=== PATIENT | female | born 1945 | race Caucasian/White ===

== ENCOUNTER → 2016-07-30 | Outpatient (CLI) | payer OTHER ==
[~2016-07-30] MED LIST: ACETAMINOPHEN500 M2 PO; ALLEGRA ALLERG180 MG PO; ALLEGRA180 MG PO; ALLERGIE SHOTS; AMLODIPINE BESYL5 MG PO; CRESTOR10 MG PO; FLUOXETINE HCL20 M1 PO; HAIR, SKIN & N1 EAC1 PO; HYDROCHLOROTH12.5 M1 PO; HYDROCODON-ACE1 EAC9 PO; KRILL OIL 1,001 EAC1 PO; LATANOPROST2.5 ML OU; MULTI VITAMIN1 EACH PO; PHENERGAN25 MG PO; PRILOSEC20 MG PO; PROBIOTIC1 EAC1 PO; SIMVASTATIN40 MG PO; TIMOPTIC5 ML OU
--- NOTE | ~2016-07-30 | CR63 ---
[facility] A Service of [facility] & [facility] RADIOLOGY TEXT RESULTS PATIENT: NEMO DAMON LOCATION: [facility] : 47 UNIT #: [id number] AGE: [address]: Benjamin Bee MD SEX: F ORDER DR: [id number] [facility] [address] [place], [place] [address] [id number] O MR#: [id number] Acc #: [id number] NAME: NEMO DAMON : 1945 SEX: F STUDY DATE/TIME: 07/30/2016 10:49 UNIT: [facility] ROOM: STUDY DESCRIPTION: CR Chest 2 View Attending Physician: Benjamin Bee M.D. Referring Physician: Benjamin Bee M.D. Ordering Physician: Benjamin Bee M.D. Primary Care Physician: Jose G Tamayo M.D. MEDICAL IMAGING REPORT This report is preliminary unless electronic signature is present EXAM Chest, 07/30/2016 HISTORY 71-year-old female patient with cough and congestion past 3 weeks. History of allergic rhinitis, acute bronchitis. COMPARISON Chest, 12/27/2015 FINDINGS Two-view chest demonstrates stable cardiomegaly. In addition there is a large fixed hiatal hernia present. This also appears unchanged. Hilar structures are preserved. Bilateral lungs are fully expanded and clear. Costophrenic angles are preserved. Bony thorax is unremarkable. IMPRESSION 1. Stable cardiomegaly. 2. Stable large fixed hiatal hernia. 3. No acute chest finding. Dictated by... Josue Sen M.D. THIS IS AN ELECTRONICALLY VERIFIED REPORT Josue Sen M.D. at 07/30/2016 3:35 PM Jamarcus TD: 07/30/2016 14:53 JOB #: [id number] MEDICAL IMAGING REPORT Page 1 of 1 COPY
== END | disposition home or self-care (01) ==
LOC: CRAD 10:36
DX: J30.89 Other allergic rhinitis (principal); R05 Cough; J20.9 Acute bronchitis, unspecified; I51.7 Cardiomegaly; K44.9 Diaphragmatic hernia without obstruction or gangrene
CPT/HCPCS: 71020